=== PATIENT | male | born 1965 | race Caucasian/White ===

== ENCOUNTER 2019-04-26 15:10 | Emergency (ER) | payer OTHER ==
[~2019-04-26] VITALS: Ht 177.8 cm; Wt 79.4 kg
[2019-04-26] MEDS ORDERED: CEPH500T PO (15:40)
--- NOTE | 2019-04-26 15:40 | PHYS DOC ---
Past History Past Medical History: No Pertinent History Past Surgical History: Other Alcohol Use: None Drug Use: None Adult General Chief Complaint Chief Complaint: LACERATION/AVULSION [facility] HPI Patient is a 53-year-old otherwise healthy male who presents with a laceration to the volar aspect of his right forearm. He states he has no trouble flexing at the wrist or making a fist. He states he can touch his thumb to each finger without difficulty. He denies any other injuries. Patient states he cannot remember exactly when his last tetanus was. He states there is a dull pain to the area. There is no pain proximal or distal to the wound. Describes the pain as moderate.[] Review of Systems Review of Systems Constitutional: Denies fever or chills [] Eyes: Denies change in visual acuity, redness, or eye pain [] HENT: Denies nasal congestion or sore throat [] Respiratory: Denies cough or shortness of breath [] Cardiovascular: No additional information not addressed in HPI [] GI: Denies abdominal pain, nausea, vomiting, bloody stools or diarrhea [] : Denies dysuria or hematuria [] Musculoskeletal: Denies back pain or joint pain [] Integument: Per history of present illness[] Neurologic: Denies headache, focal weakness or sensory changes [] Endocrine: Denies polyuria or polydipsia [] All other systems were reviewed and found to be within normal limits, except as documented in this note. Allergies Allergies Allergies Coded Allergies Type Severity Reaction Last Updated Verified Penicillins Allergy Unknown 04/26/19 Yes Physical Exam Physical Exam Constitutional: Well developed, well nourished, mild distress, non-toxic appearance. [] HENT: Normocephalic, atraumatic, bilateral external ears normal, oropharynx moist, no oral exudates, nose normal. [] Eyes: PERRLA, EOMI, conjunctiva normal, no discharge. [] Neck: Normal range of motion, no tenderness, supple, no stridor. [] Cardiovascular:Heart rate regular rhythm, no murmur [] Lungs & Thorax: Bilateral breath sounds clear to auscultation [] Abdomen: Bowel sounds normal, soft, no tenderness, no masses, no pulsatile masses. [] Skin: There is a 10 cm laceration on the volar aspect of the proximal right forearm that goes through the subcutaneous tissue but not into the muscle.. [] Back: No tenderness, no CVA tenderness. [] Extremities: Patient has good flexion at the wrist he can make a fist he also has opposition to all fingers is good distal sensation. [] Neurologic: Alert and oriented X 3, normal motor function, normal sensory function, no focal deficits noted. [] Psychologic: Affect normal, judgement normal, mood normal. [] Current Patient Data Vital Signs Vital Signs Date Time Temp Pulse Resp B/P (MAP) Pulse Ox O2 Delivery O2 Flow Rate FiO2 04/26/19 15:18 99.2 78 16 95 Room Air EKG EKG [] Radiology/Procedures Radiology/Procedures [] Course & Med Decision Making Course & Med Decision Making Pertinent Labs and Imaging studies reviewed. (See chart for details) [Procedure: Laceration repair The wound was prepped by saline irrigation and scrubbed with Shur-Clens. Wound was inspected for foreign body there were none. The wound edges were trimmed to allow for perfect approximation. Then using a large stapler 11 marcial were placed with excellent approximation of the wound this was performed after 10 mL of 1% lidocaine were placed.] Dragon Disclaimer Dragon Disclaimer This electronic medical record was generated, in whole or in part, using a voice recognition dictation system. Departure Departure: Impression: Primary Impression: Laceration of right forearm Disposition: 01 HOME, SELF-CARE Condition: IMPROVED Referrals: [facility] (PCP) Patient Instructions: Laceration Care, Adult Additional Instructions: [facility] Place removed in 10 days area and return to the emergency department with any new or concerning symptoms Scripts Cephalexin (CEPHALEXIN) 500 Mg Tablet 1 TAB PO TID for prophylaxis, #30 TAB Prov: NIMISHA MORALES DO 04/26/19 Problem Qualifiers Primary Impression: Laceration of right forearm Encounter type: initial encounter Qualified Codes: S51.811A - Laceration without foreign body of right forearm, initial encounter NIMISHA MORALES DO Apr 26, 2019 15:40
[2019-04-26 15:47] VITALS: BP 128/79
[2019-04-26] MEDS ORDERED: TETANUS AND DIPHTHERIA TOX/PF 0.5 ML VIAL. VAX IM ONE (16:00)
== END 2019-04-26 15:55 | disposition home or self-care (01) ==
LOC: ER 15:10
DX: S51.811A Laceration without foreign body of right forearm, initial encounter (principal); Z88.0 Allergy status to penicillin; X58.XXXA Exposure to other specified factors, initial encounter; Y93.89 Activity, other specified; Y92.89 Other specified places as the place of occurrence of the external cause; Y99.8 Other external cause status
CPT/HCPCS: 12004; 90471; 90714; 99283-25